=== PATIENT | male | born 1950 | race Caucasian/White ===

== ENCOUNTER 2021-09-13 11:07 | Observation (INO) | payer MEDICARE, SELFPAY ==
[2021-09-13] MEDS ORDERED: GASTROGRAFIN 30 ML BOT ONE (11:49)
[2021-09-13] MEDS ORDERED: hydrALAZINE 20 MG/ML VIAL SLOW IVP PRN (14:58)
[2021-09-13] MEDS ORDERED: Promethazine HCl 25 MG/ML VIAL IM PRN (14:58)
[2021-09-13] MEDS ORDERED: Acetaminophen 325 MG TAB PO PRN (14:58)
[2021-09-13] MEDS ORDERED: Sodium Chloride 0.9% 1,000 ML IV SCH (15:00)
[2021-09-13] MEDS ORDERED: Lactated Ringer's 1,000 ML IV SCH (15:15)
[2021-09-13] MEDS: Lactated Ringer's 1,000 ML IV SCH (17:43)
[2021-09-13] MEDS: Ondansetron PF 4 MG/2 ML Vial IVP PRN (17:43)
[2021-09-13 17:51] VITALS: BMI 29.6
[2021-09-13] MEDS ORDERED: Famotidine 20 MG TAB PO SCH (21:00)
[2021-09-13] MEDS ORDERED: Amlodipine 10 MG TAB PO SCH (21:00)
[2021-09-13] MEDS ORDERED: Famotidine/PF 20 mg/2ml Vial SLOW IVP SCH (21:00)
[2021-09-13] MEDS ORDERED: Bisacodyl 10 MG SUPP PR PRN (21:06)
[2021-09-13] MEDS ORDERED: Fleet Enema 133 ML BOT PR SCH (22:00)
[2021-09-13] MEDS: Senokot S 8.6-50 MG TAB PO SCH (23:58)
[2021-09-14] MEDS: Lactated Ringer's 1,000 ML IV SCH ×4 (00:08→17:43)
[2021-09-14 07:15] LABS: #Lymphocytes 1.3 thou/uL (1.20-3.40); #Monocytes 1.9 thou/uL (0.11-0.59); #Neutrophils 11.4 thou/uL (1.40-6.50); %Basophils 0.2 % (0.0-1.0); %Eosinophils 0.1 % (0.0-10.0); %Monocytes 12.9 % (0.0-10.0); %Neutrophils 77.9 % (42.0-75.0); Mean Corpuscular HGB CONC 33.1 g/dL (32.0-36.0); Mean Corpuscular Hemoglobin 29.9 pg (27.0-31.0); Mean Corpuscular Volume 90.4 fL (78.0-98.0); Mean Platelet Volume 8.2 fL (7.4-10.4); Platelet Count 239 thou/uL (130-400); RBC Distribution Width 13.1 % (11.5-14.5); White Blood Cell (WBC) Count 14.6 thou/uL (4.8-10.8)
[2021-09-14 07:32] LABS: Anion Gap 17 mmol/L (10-20); BUN (Urea Nitrogen) 38 mg/dL (8.4-25.7); Calc. Creatinine Clearance 30 mL/min (70-130); Calcium 9.8 mg/dL (7.8-10.44); Carbon Dioxide 30 mmol/L (23-31); Chloride 103 mmol/L (98-107); Glucose 121 mg/dL (80-115); Potassium 4.1 mmol/L (3.5-5.1); Sodium 146 mmol/L (136-145)
[2021-09-14 08:08] LABS: INR-International Normal Ratio 1.1; PTT 27.5 sec (22.9-36.1); Prothrombin Time 13.9 sec (12.0-14.7)
[2021-09-14 08:29] LABS: Anion Gap 16 mmol/L (10-20); BUN (Urea Nitrogen) 41 mg/dL (8.4-25.7); Calc. Creatinine Clearance 31 mL/min (70-130); Calcium 9.5 mg/dL (7.8-10.44); Carbon Dioxide 31 mmol/L (23-31); Chloride 103 mmol/L (98-107); Glucose 114 mg/dL (80-115); Sodium 146 mmol/L (136-145)
[2021-09-14] MEDS ORDERED: Sodium Chloride 0.9% 1,000 ML IV SCH (08:45)
[2021-09-14] MEDS: Multivitamin W/ Minerals 1 TAB PO SCH (09:22)
[2021-09-14] MEDS: Aspirin 81 mg Enteric Coated Tablet PO SCH (09:22)
[2021-09-14] MEDS: Polyethylene Glycol 3350 17 GM Packet PO SCH (09:22)
[2021-09-14] MEDS: Senokot S 8.6-50 MG TAB PO SCH ×2 (09:22→19:32)
[2021-09-14] MEDS: Lisinopril 20 MG TAB PO SCH (15:43)
[2021-09-14] MEDS: Ondansetron PF 4 MG/2 ML Vial IVP PRN (17:41)
[2021-09-14] MEDS ORDERED: Sodium Chloride 0.9% 500 ML IV SCH (19:00)
[2021-09-15] MEDS: Lactated Ringer's 1,000 ML IV SCH ×2 (02:59→08:50)
[2021-09-15 05:57] LABS: Anion Gap 8 mmol/L (10-20); BUN (Urea Nitrogen) 31 mg/dL (8.4-25.7); Calc. Creatinine Clearance 63 mL/min (70-130); Calcium 8.2 mg/dL (7.8-10.44); Carbon Dioxide 31 mmol/L (23-31); Chloride 103 mmol/L (98-107); Glucose 97 mg/dL (80-115); Sodium 138 mmol/L (136-145)
[2021-09-15 07:51] VITALS: BP 121/59; TEMP 97.2
[2021-09-15] MEDS: Lisinopril 20 MG TAB PO SCH (08:26)
[2021-09-15] MEDS: Polyethylene Glycol 3350 17 GM Packet PO SCH (08:26)
[2021-09-15] MEDS: Multivitamin W/ Minerals 1 TAB PO SCH (08:27)
[2021-09-15] MEDS: Senokot S 8.6-50 MG TAB PO SCH (08:27)
[2021-09-15] MEDS: Aspirin 81 mg Enteric Coated Tablet PO SCH (08:27)
[2021-09-15] MEDS ORDERED: Bisacodyl 5 MG TAB PO PRN (08:37)
[2021-09-15] MEDS ORDERED: DULoxetine 30 MG CAP PO SCH (09:00)
== END 2021-09-15 10:20 | disposition home or self-care (01) ==
LOC: SURG A 11:07
PROVIDERS: ADMIT Surgery; ATTEND Surgery
DX: K59.09 Other constipation (principal); I12.9 Hypertensive chronic kidney disease with stage 1 through stage 4 chronic kidney disease, or unspecified chronic kidney disease; N18.9 Chronic kidney disease, unspecified; N17.9 Acute kidney failure, unspecified; K21.9 Gastro-esophageal reflux disease without esophagitis; G89.29 Other chronic pain; M54.50 Low back pain, unspecified; E78.5 Hyperlipidemia, unspecified; Z79.82 Long term (current) use of aspirin; Z79.899 Other long term (current) drug therapy; Z88.2 Allergy status to sulfonamides
CPT/HCPCS: 74018; 74250; 80048 ×3; 85025; 85610; 85730; 86850; 86900; 86901; 96374; 96375; 97139 ×3; G0378 ×3; 36415; J2405; J7030; J7050; J7120; Q9963; S0028